=== PATIENT | female | born 1980 | race Caucasian/White ===

== ENCOUNTER → 2017-03-10 | Outpatient (CLI) | payer OTHER ==
[2016-04-05 03:50] VITALS: BP 161/100
--- NOTE | 2017-03-10 08:55 | RAD ---
Indication: Left knee pain. Time of exam 0845 hours. 3 views of the left knee were obtained. The alignment is normal. The joint spaces are well maintained. Articular surfaces are smooth. No fracture, dislocation or effusion is detected. Impression: No acute abnormality is detected.
== END | disposition home or self-care (01) ==
LOC: DXRADRC 08:29
PROVIDERS: ATTEND Family Medicine
DX: M25.562 Pain in left knee (principal); X58.XXXD Exposure to other specified factors, subsequent encounter
CPT/HCPCS: 73562

== ENCOUNTER → 2017-07-04 | Outpatient (CLI) | payer OTHER ==
[2016-04-05 03:50] VITALS: BP 161/100
[~2017-07-04] MED LIST: IOHEXOL 240 MG/ML 50ML VIAL. ONE; IOHEXOL 240 MG/ML 50ML VIAL. PO ONE; IOHEXOL 300 MG/ML 75 ML VIAL. IV ONE
--- NOTE | 2017-07-04 15:37 | RAD ---
INDICATION: Right lower quadrant pain COMPARISON: None. TECHNIQUE: Axial CT images were obtained through the abdomen and pelvis with intravenous contrast. Coronal reformations were processed. FINDINGS: Abdominal aorta is not grossly aneurysmal. No intrahepatic bile duct dilation. No peripancreatic edema. Spleen is unremarkable. 2 mm possible nonobstructive left renal stone. No left-sided hydronephrosis. No right-sided hydronephrosis. Urinary bladder is partially distended. Probable dominant follicle or small cyst right adnexa, 18 mm. Small free fluid in pelvis. No definite periappendiceal inflammation. Mild prominence of the wall of the terminal ileum. Appendix measures up to approximately 6-7 mm through portion of its course. Small fat-containing umbilical hernia. There is some evidence of degenerative changes of spine with disc protrusions. IMPRESSION: 1. No evidence of hydronephrosis. 2. A portion of the appendix measures near the upper limits of normal in size with the remainder of the appendix not dilated. There is no definite adjacent inflammatory changes to suggest acute appendicitis. 3. Mild prominence of the wall of the terminal ileum. Cannot exclude causes such as enteritis from infectious or inflammatory etiologies. PQRS Compliance Statement: One or more of the following individualized dose reduction techniques were utilized for this examination: 1. Automated exposure control 2. Adjustment of the mA and/or kV according to patient size 3. Use of iterative reconstruction technique
== END | disposition home or self-care (01) ==
LOC: CT 14:05
PROVIDERS: ATTEND Family Medicine
DX: K42.9 Umbilical hernia without obstruction or gangrene (principal); N32.89 Other specified disorders of bladder; M47.899 Other spondylosis, site unspecified
CPT/HCPCS: 74177; Q9966; Q9967

== ENCOUNTER → 2018-04-14 | Outpatient (CLI) | payer OTHER ==
[2016-04-05 03:50] VITALS: BP 161/100
[2018-04-14 12:03] LABS: BASO % 0 % (0-3); EOS % 1 % (0-3); GFR 62.7; HEMOGLOBIN 12.9 g/dL (12.0-15.5); LYMPH # 1.9 x10^3/uL (1.0-4.8); LYMPH % 31 % (24-48); MEAN CORPUSCULAR HEMOGLOBIN 30 pg (25-35); MEAN CORPUSCULAR HGB CONC 34 g/dL (31-37); MEAN CORPUSCULAR VOLUME 87 fL (79-100); MONO # 0.5 x10^3/uL (0.0-1.1); MONO % 8 % (0-9); NEUT # 3.7 x10^3uL (1.8-7.7); NEUT % 60 % (31-73); PLATELET COUNT 220 x10^3/uL (140-400); POTASSIUM 3.9 mmol/L (3.5-5.1); RED BLOOD COUNT 4.36 x10^6/uL (3.50-5.40); RED CELL DISTRIBUTION WIDTH 14.8 % (11.5-14.5); WHITE BLOOD COUNT 6.2 x10^3/uL (4.0-11.0)
[2018-04-14 14:59] LABS: FREE T4 1.15 ng/dL (0.76-1.46); THYROID STIM HORMONE (TSH) 1.815 uIU/mL (0.358-3.740)
== END | disposition home or self-care (01) ==
LOC: PMG 11:08
PROVIDERS: ATTEND Physician Assistant Medical
DX: T14.8XXA Other injury of unspecified body region, initial encounter (principal); X58.XXXA Exposure to other specified factors, initial encounter; Y93.89 Activity, other specified; Y92.89 Other specified places as the place of occurrence of the external cause; Y99.8 Other external cause status
CPT/HCPCS: 36415; 80048; 84439; 84443; 85025; 85610

== ENCOUNTER → 2019-03-10 | Outpatient (CLI) | payer OTHER ==
[2016-04-05 03:50] VITALS: BP 161/100
--- NOTE | 2019-03-10 09:12 | RAD ---
EXAM: LEFT SHOULDER 3 VIEWS. HISTORY: Left shoulder pain. COMPARISON: None. FINDINGS: No fractures are identified. Glenohumeral joint spaces and alignment are maintained. Acromioclavicular joint spaces and alignment are maintained. IMPRESSION: 1. No fracture or malalignment. Electronically signed by: Sue Newell MD (03/10/2019 9:09 AM) [facility]
== END | disposition home or self-care (01) ==
LOC: PMG 08:39
PROVIDERS: ATTEND Family Medicine
DX: S49.92XA Unspecified injury of left shoulder and upper arm, initial encounter (principal); X58.XXXA Exposure to other specified factors, initial encounter; Y93.89 Activity, other specified; Y92.89 Other specified places as the place of occurrence of the external cause; Y99.8 Other external cause status
CPT/HCPCS: 73030

== ENCOUNTER → 2019-03-21 | Outpatient (CLI) | payer OTHER ==
[2016-04-05 03:50] VITALS: BP 161/100
--- NOTE | 2019-03-21 17:21 | RAD ---
Examination: FOOT LEFT 3V History: Pain Comparison/Correlation: None Findings: Total 3 images of the left foot were obtained. Joint spaces are normal. No displaced fracture or bony destruction. Soft tissues are unremarkable. Impression: Normal three-view left foot x-ray exam. Electronically signed by: Enoc Montelongo MD (03/21/2019 5:18 PM) [facility]
== END | disposition home or self-care (01) ==
LOC: PMG 14:36
PROVIDERS: ATTEND Registered Nurse
DX: S99.922A Unspecified injury of left foot, initial encounter (principal); M79.672 Pain in left foot; W22.8XXA Striking against or struck by other objects, initial encounter; Y93.89 Activity, other specified; Y92.89 Other specified places as the place of occurrence of the external cause; Y99.8 Other external cause status
CPT/HCPCS: 73630

== ENCOUNTER → 2019-08-29 | Outpatient (CLI) | payer OTHER ==
[2016-04-05 03:50] VITALS: BP 161/100
--- NOTE | 2019-08-29 17:04 | RAD ---
Transabdominal and transvaginal sonography of the pelvis Clinical indications: Irregular vaginal bleeding. Pelvic pain. Transabdominal sonography: The uterus is anteverted in position. The longitudinal and AP and transverse dimensions of the uterus are 10.0 cm and 4.5 cm and 5.47 m respectively. Endometrial canal probably visualized. Therefore, transvaginal sonography will be performed. There is a cystic lesion of the left adnexa. Neither ovary is visualized transabdominally. Transvaginal sonography: The imaged canal measures 11 mm in thickness which is normal. No hyperemia of the endometrial canal is seen. No uterine mass or fibroid is evident. The left ovary is enlarged measuring 4.1 cm x 5.0 cm x 4.7 size and contains a 3.8 cm cyst. Cumulus oophorus is seen within the cyst consistent with a corpus luteum cyst. Color Doppler flow is seen within left ovary. The right ovary measures 2.2 cm and 1.6 cm and 3.4 cm in size and is normal. Color Doppler flow is seen within the right ovary. No adnexal mass or free fluid is evident. IMPRESSION: 3.8 cm corpus luteum cyst of the left ovary. Electronically signed by: Aaron Yepez MD (08/29/2019 5:01 PM) [facility]
== END | disposition home or self-care (01) ==
LOC: PMG 15:34
PROVIDERS: ATTEND Physician Assistant Medical
DX: N83.12 Corpus luteum cyst of left ovary (principal); N93.9 Abnormal uterine and vaginal bleeding, unspecified; F17.200 Nicotine dependence, unspecified, uncomplicated
CPT/HCPCS: 76830; 76856

== ENCOUNTER → 2019-08-29 | Outpatient (CLI) | payer OTHER ==
[2016-04-05 03:50] VITALS: BP 161/100
[2019-08-29 12:35] LABS: BASO % 1 % (0-3); EOS % 0 % (0-3); HEMATOCRIT 39.7 % (36.0-47.0); HEMOGLOBIN 13.1 g/dL (12.0-15.5); LYMPH # 1.8 x10^3/uL (1.0-4.8); LYMPH % 24 % (24-48); MEAN CORPUSCULAR HEMOGLOBIN 30 pg (25-35); MEAN CORPUSCULAR HGB CONC 33 g/dL (31-37); MEAN CORPUSCULAR VOLUME 90 fL (79-100); MONO # 0.4 x10^3/uL (0.0-1.1); MONO % 6 % (0-9); NEUT # 4.9 x10^3uL (1.8-7.7); NEUT % 69 % (31-73); PLATELET COUNT 242 x10^3/uL (140-400); RED BLOOD COUNT 4.39 x10^6/uL (3.50-5.40); WHITE BLOOD COUNT 7.2 x10^3/uL (4.0-11.0)
[2019-08-29 12:43] LABS: ALBUMIN 3.8 g/dL (3.4-5.0); ALBUMIN/GLOBULIN RATIO 1.1 (1.0-1.7); CALCIUM 8.3 mg/dL (8.5-10.1); GFR 62.1; POTASSIUM 3.9 mmol/L (3.5-5.1); TOTAL BILIRUBIN 0.4 mg/dL (0.2-1.0); TOTAL PROTEIN 7.4 g/dL (6.4-8.2)
[2019-08-30 03:06] LABS: DHEA SO4 52.9 ug/dL (57.3-279.2); ESTRADIOL LEVEL 112.5 pg/mL (.); FSH 5.7 mIU/mL (.); LUTEINIZING HORMONE 6.7 mIU/mL (.); PROGESTERONE 6.8 ng/mL (.)
[2019-08-30 19:34] LABS: THYROID STIM HORMONE (TSH) 1.72 uIU/mL (0.358-3.740)
[2019-09-01 02:06] LABS: ESTROGEN LEVEL 243 pg/mL (.)
[2019-09-01 11:08] LABS: TESTOSTERONE FREE 0.05 ng/dL (0.10-0.85); TESTOSTERONE TOTAL 3 ng/dL (8-48)
== END | disposition home or self-care (01) ==
LOC: PMG 11:10
PROVIDERS: ATTEND Physician Assistant Medical
DX: Z13.6 Encounter for screening for cardiovascular disorders (principal); N93.9 Abnormal uterine and vaginal bleeding, unspecified; F17.200 Nicotine dependence, unspecified, uncomplicated
CPT/HCPCS: 36415; 80053; 80061; 82627; 82670; 82672; 83001; 83002; 84144; 84402; 84403; 84443; 85025

== ENCOUNTER → 2019-11-13 | Outpatient (CLI) | payer OTHER ==
[2016-04-05 03:50] VITALS: BP 161/100
[2019-11-13 14:39] LABS: BASO % 1 % (0-3); EOS # 0.1 x10^3/uL (0.0-0.7); EOS % 1 % (0-3); HEMATOCRIT 37.5 % (36.0-47.0); HEMOGLOBIN 12.5 g/dL (12.0-15.5); LYMPH # 1.9 x10^3/uL (1.0-4.8); LYMPH % 30 % (24-48); MEAN CORPUSCULAR HEMOGLOBIN 29 pg (25-35); MEAN CORPUSCULAR HGB CONC 33 g/dL (31-37); MEAN CORPUSCULAR VOLUME 87 fL (79-100); MONO # 0.4 x10^3/uL (0.0-1.1); MONO % 7 % (0-9); NEUT # 3.8 x10^3uL (1.8-7.7); NEUT % 61 % (31-73); PLATELET COUNT 240 x10^3/uL (140-400); RED BLOOD COUNT 4.31 x10^6/uL (3.50-5.40); RED CELL DISTRIBUTION WIDTH 14.4 % (11.5-14.5); WHITE BLOOD COUNT 6.2 x10^3/uL (4.0-11.0)
[2019-11-13 14:43] LABS: CALCIUM 8.4 mg/dL (8.5-10.1); GFR 62.1; POTASSIUM 3.8 mmol/L (3.5-5.1)
[2019-11-13 14:50] LABS: ALBUMIN 3.8 g/dL (3.4-5.0); ALBUMIN/GLOBULIN RATIO 1.2 (1.0-1.7); TOTAL BILIRUBIN 0.3 mg/dL (0.2-1.0)
[2019-11-13 15:46] LABS: SEDIMENTATION RATE 12 (0-25)
== END | disposition home or self-care (01) ==
LOC: PMG 13:32
PROVIDERS: ATTEND Physician Assistant Medical
DX: M25.50 Pain in unspecified joint (principal)
CPT/HCPCS: 36415; 80053; 85025; 85651; 86617; 86618

== ENCOUNTER → 2020-09-29 | Outpatient (CLI) | payer OTHER ==
[2016-04-05 03:50] VITALS: BP 161/100
== END ==
LOC: LAB 11:07
PROVIDERS: ATTEND Internal Medicine Cardiovascular Disease
DX: U07.1 COVID-19 (principal); R51.9 Headache, unspecified
CPT/HCPCS: U0003

== ENCOUNTER 2020-10-18 16:56 | Emergency (ER) | payer BC, OTHER ==
[~2020-10-18] VITALS: Ht 162.6 cm; Wt 88.2 kg
[2020-10-18] MEDS ORDERED: IBUPROFEN 600 MG TABLET. PO ONE (17:00)
[2020-10-18] MEDS ORDERED: diphenhydrAMINE 50 MG/ML VIAL ONE (17:07)
[2020-10-18] MEDS ORDERED: diphenhydrAMINE 50 MG/ML VIAL IVP ONE (17:15)
[2020-10-18] MEDS ORDERED: LIDOCAINE 2% 20 ML VIAL. ONE (17:35)
--- NOTE | 2020-10-18 17:35 | RAD ---
Study: XR LT WRIST 3VIEWS Indication: Fall. Comparison: None. Findings: Dorsal more so than radial displacement of a comminuted distal radius fracture with intra-articular e xtension. Foreshortening is present as well. The carpal bones along with the hand are displaced along with the radial articular surface. Intercarpal alignment appears maintained. No discrete carpal bone or distal ulna fracture. Impression: Acute, comminuted distal radius fracture with dorsal/radial displacement, foreshortening and intra-ar ticular extension. No acute fracture seen elsewhere but recommend close attention on postreduction ra diographs. Electronically signed by: DIPIKA FOLEY MD (10/18/2020 5:33 PM) [id number]
[2020-10-18] MEDS ORDERED: LIDOCAINE 2% 20 ML VIAL. IJ ONE (17:45)
--- NOTE | 2020-10-18 17:47 | PHYS DOC ---
Past History Past Medical History: No Pertinent History Past Surgical History: No Surgical History Alcohol Use: Occasionally Drug Use: None General Adult EDM: Chief Complaint: WRIST PAIN HPI: HPI: Patient is a 40-year-old female who presents with left wrist pain. Patient states that she was walking out to her car she slipped on the ice. Patient has an obvious wrist deformity. Patient's rating pain a 10 out of 10. Patient denies taking anything at home for the pain. Review of Systems: Review of Systems: Constitutional: Denies fever or chills Eyes: Denies change in visual acuity HENT: Denies nasal congestion or sore throat Respiratory: Denies cough or shortness of breath Cardiovascular: Denies chest pain or edema GI: Denies abdominal pain, nausea, vomiting, bloody stools or diarrhea : Denies dysuria Musculoskeletal: Denies back pain or joint pain Integument: Denies rash Neurologic: Denies headache, focal weakness or sensory changes Endocrine: Denies polyuria or polydipsia Lymphatic: Denies swollen glands Psychiatric: Denies depression or anxiety Current Medications: Current Meds: Current Medications Medications (Trade) Dose Ordered Sig/Charmaine Start Time Stop Time Status Last Admin Dose Admin Diphenhydramine HCl (Benadryl) 50 mg STK-MED ONCE 10/18/20 17:07 10/18/20 17:08 DC Fentanyl Citrate (Fentanyl 2ml Vial) 100 mcg STK-MED ONCE 10/18/20 17:07 10/18/20 17:08 DC Ibuprofen (Motrin) 600 mg 1X ONCE 10/18/20 17:00 10/18/20 17:04 DC Allergies: Allergies: Allergies Coded Allergies Type Severity Reaction Last Updated Verified No Known Drug Allergies 04/05/16 No Physical Exam: PE: Constitutional: Well developed, well nourished, no acute distress, non-toxic appearance. [] HENT: Normocephalic, atraumatic, bilateral external ears normal, oropharynx moist, no oral exudates, nose normal. [] Eyes: PERRLA, EOMI, conjunctiva normal, no discharge. [] Neck: Normal range of motion, no tenderness, supple, no stridor. [] Cardiovascular:Heart rate regular rhythm, no murmur [] Lungs & Thorax: Bilateral breath sounds clear to auscultation [] Abdomen: Bowel sounds normal, soft, no tenderness, no masses, no pulsatile masses. [] Skin: Warm, dry, no erythema, no rash. [] Back: No tenderness, no CVA No tenderness, Extremities: no edema. no cyanosis, deformity of left wrist, pulses are intact Neurologic: Alert and oriented X 3, normal motor function, normal sensory function, no focal deficits noted. [] Psychologic: Affect normal, judgement normal, mood normal. [] Current Patient Data: Vital Signs: Vital Signs Date Time Temp Pulse Resp B/P (MAP) Pulse Ox O2 Delivery O2 Flow Rate FiO2 10/18/20 17:12 98 Room Air 10/18/20 17:00 97.7 118 16 174/109 (130) EKG: EKG: [] Radiology/Procedures: Radiology/Procedures: []Study: XR LT WRIST 3VIEWS Indication: Fall. Comparison: None. Findings: Dorsal more so than radial displacement of a comminuted distal radius fracture with intra-articular extension. Foreshortening is present as well. The carpal bones along with the hand are displaced along with the radial articular surface. Intercarpal alignment appears maintained. No discrete carpal bone or distal ulna fracture. Impression: Acute, comminuted distal radius fracture with dorsal/radial displacement, foreshortening and intra-articular extension. No acute fracture seen elsewhere but recommend close attention on postreduction radiographs. Electronically signed by: DIPIKA FOLEY MD (10/18/2020 5:33 PM) [id number] 6 left forearm 2 views left elbow 3 views. HISTORY: Pain after a fall left elbow 3 views were taken of the left elbow. There is not evidence of an acute fracture. The elbow is in a splint. No acute osseous abnormality is noted. Left forearm 2 views were taken of the left forearm. There is a displaced angulated fracture of the distal radius. IMPRESSION: 1. Displaced angulated fracture distal left radius. 2. No acute fracture noted at the left elbow. Electronically signed by: Jesús Cramer MD (10/18/2020 9:35 PM) [facility] Heart Score: Risk Factors: Risk Factors: DM, Current or recent (<one month) smoker, HTN, HLP, family history of CAD, obesity. Risk Scores: Score 0 - 3: 2.5% MACE over next 6 weeks - Discharge Home Score 4 - 6: 20.3% MACE over next 6 weeks - Admit for Clinical Observation Score 7 - 10: 72.7% MACE over next 6 weeks - Early Invasive Strategies Course & Med Decision Making: Course & Med Decision Making Pertinent Labs and Imaging studies reviewed. (See chart for details) []Patient is a 40-year-old female who presents with left wrist pain. Patient states that she was walking out to her car she slipped on the ice. Patient has an obvious wrist deformity. Patient's rating pain a 10 out of 10. Patient denies taking anything at home for the pain. Fentanyl given. Is neurovascular intact. Xray of left wrist shows a fracture. Diluadid and Benadryl given. "Pain medication always makes me itch". Patient still reporting pain. 1 of Dilaudid given. Fluids and Zofran given. Patient complaining of left forearm and left elbow pain. X-ray shows no acute fracture of left forearm or elbow. X-ray of left wrist shows acute, comminuted distal radius fracture with dorsal/radial displacement, foreshortening and intra-articular extension. No acute fracture seen elsewhere but recommend close attention on postreduction radiographs. Spoke with Dr. Garcia from Ortho who stated we needed to reduce and apply a sugar tong splint. Patient will follow up with Dr. Martinez's office on Tuesday to discuss surgery. Patient reporting 10/10 pain. Dilaudid given. Patient's pain has improved. Patient is hemodynamically stable and able to ambulate on her own. Patient agrees with follow-up plan and ready to be discharged to home. Conducted conscious sedation of the left wrist with Dr. Mon. See notes below Wu Disclaimer: Wu Disclaimer: This electronic medical record was generated, in whole or in part, using a voice recognition dictation system. Departure Departure: Impression: Primary Impression: Wrist fracture, closed Qualified Codes: S62.102A - Fracture of unspecified carpal bone, left wrist, initial encounter for closed fracture Disposition: 01 DC HOME SELF CARE/HOMELESS Condition: IMPROVED Referrals: KRISTY MASON (PCP) Patient Instructions: Wrist Fracture Additional Instructions: You were treated today for a fractured left wrist. We have placed a splint on your left wrist. You will need to call Dr. Ni any on Tuesday to set up an appointment for surgery. Have written your prescription for hydrocodone that you can take as needed for pain. Please take ibuprofen also for discomfort. Make sure that you are resting at home, using ice to the area, and elevating your arm. Please return to the emergency room for worsening symptoms or concerns. Dr. Ni's phone number. [phone] EMERGENCY DEPARTMENT GENERAL DISCHARGE INSTRUCTIONS Thank you for coming to [facility] (ED) today and trusting us with you care. We trust that you had a positivie experience in our Emergency Department. If you wish to speak to the department management, you may call the director at [phone]. YOUR FOLLOW UP INSTRUCTIONS ARE FOLLOWS: 1. Do you have a private Doctor? If you do not have a private doctor, please ask for a resource list of physicians or clinics that may be able to assist you with follow up care. 2. The Emergency Physician has interpreted your x-rays. The X-Ray specialist will also review them. If there is a change in the findings, you will be notified in 48 hours when at all possible. 3. A lab test or culture has been done, your results will be reviewed and you will be notified if you need a change in treatment. ADDITIONAL INSTRUCTIONS AND INFORMATION: 1. Your care today has been supervised by a physician who is specially trained in emergency care. Many problems require more than one evaluation for a complete diagnosis and treatment. We recommend that you schedule your follow up appointment as recommended to ensure complete treatment of you illness or injury. If you are unable to obtain follow up care and continue to have a problem, or if your condition worsens, we recommend that you return to the ED. 2. We are not able to safely determine your condition over the phone nor are we able to give sound medical advice over the phone. For these safety reasons, if you call for medical advice we will ask you to come to the ED for further evaluation. 3. If you have any questions regarding these discharge instructions please call the ED at [phone]. SAFETY INFORMATION: In the interest of safety, wellness, and injury prevention; we encourage you to wear your sealbelt, if you smoke; quite smoking, and we encourage family to use a protective helmet for bicycling and other sporting events that present an increased risk for head injury. IF YOUR SYMPTOMS WORSEN OR NEW SYMPTOMS DEVELOP, OR YOU HAVE CONCERNS ABOUT YOUR CONDITION; OR IF YOUR CONDITION WORSENS WHILE YOU ARE WAITING FOR YOUR FOLLOW UP APPOINTMENT; EITHER CONTACT YOUR PRIMARY CARE DOCTOR, THE PHYSICIAN WHOSE NAME AND NUMBER YOU WERE GIVEN, OR RETURN TO THE ED IMMEDIATELY. Scripts Oxycodone Hcl/Acetaminophen (PERCOCET 5-325 MG TABLET ) 1 Each Tablet 1 TAB PO PRN Q4HRS PRN for PAIN, #30 TAB Prov: ANIYA ROGERS APRN 10/18/20 ANIYA ROGERS APRN Oct 18, 2020 17:47
[2020-10-18] MEDS ORDERED: HYDROmorphone PF 1 MG/ML DISP.SYRIN IVP ONE ×3 (18:00→20:30)
[2020-10-18] MEDS ORDERED: ONDANSETRON PF 4 MG/2 ML VIAL. IVP ONE (18:45)
[2020-10-18] MEDS ORDERED: IV NORMAL SALINE 1,000ML 1,000 ML IV ONE (18:45)
[2020-10-18] MEDS ORDERED: PROPOFOL 10,000 MCG/ML (20ML) VIAL IV ONE ×2 (19:09→19:15)
--- NOTE | 2020-10-18 20:23 | RAD ---
Exam: Left wrist 2 views INDICATION: Post reduction TECHNIQUE: Frontal and lateral views of the left wrist were obtained. Comparisons: None FINDINGS: Redemonstration of a impacted comminuted fracture of the distal left radius which is overall similar alignment when compared to prior exam. Evaluation mildly limited secondary to overlying cast material. IMPRESSION: Redemonstration of severely comminuted intra-articular fracture of the distal left radius. Electronically signed by: Raffaele Hinkle MD (10/18/2020 8:21 PM) [facility]
[2020-10-18] MEDS ORDERED: OXYC1TAB15 PO (20:24)
[2020-10-18 20:33] VITALS: BP 155/93
--- NOTE | 2020-10-18 21:38 | RAD ---
6 left forearm 2 views left elbow 3 views. HISTORY: Pain after a fall left elbow 3 views were taken of the left elbow. There is not evidence of an acute fracture. The elbow is in a s plint. No acute osseous abnormality is noted. Left forearm 2 views were taken of the left forearm. There is a displaced angulated fracture of the distal radius. IMPRESSION: 1. Displaced angulated fracture distal left radius. 2. No acute fracture noted at the left elbow. Electronically signed by: Jesús Cramer MD (10/18/2020 9:35 PM) [facility]
== END 2020-10-18 21:41 | disposition home or self-care (01) ==
LOC: ER 16:56
DX: S52.502A Unspecified fracture of the lower end of left radius, initial encounter for closed fracture (principal); S62.102A Fracture of unspecified carpal bone, left wrist, initial encounter for closed fracture; W00.0XXA Fall on same level due to ice and snow, initial encounter; Y93.01 Activity, walking, marching and hiking; Y92.89 Other specified places as the place of occurrence of the external cause; Y99.8 Other external cause status
CPT/HCPCS: 25605; 73080; 73090; 73100; 73110; 96361; 96374; 96375; 99152; 99153; 99285; J1170; J1200; J2001; J2405; J2704; J3010; J7030

== ENCOUNTER → 2020-11-03 | Outpatient (CLI) | payer OTHER ==
[2020-10-18 20:33] VITALS: BP 155/93
[~2020-11-03] MED LIST changes: -IOHEXOL 240 MG/ML 50ML VIAL. ONE; -IOHEXOL 240 MG/ML 50ML VIAL. PO ONE; -IOHEXOL 300 MG/ML 75 ML VIAL. IV ONE; +OXYC1TAB15 PO
--- NOTE | 2020-11-03 17:43 | RAD ---
Left wrist 3 views INDICATION: Left wrist pain. Posterior left hand swelling. COMPARISON: 10/18/2020 FINDINGS: Interval volar plate and screw construct fixation of the comminuted depressed fracture of the distal left radial metaphysis with mild residual deformity. The AP view suggests mild incongruence of the ar ticular surface. Soft tissues show mild diffuse swelling of the wrist. IMPRESSION: ORIF of the impacted comminuted distal left radial metaphyseal fracture with intra-articular extensio n showing improvement in alignment with mild incongruence of the articular surface. This can be evalu ated in greater detail by CT if clinically warranted. Electronically signed by: Elliot Allison MD (11/03/2020 5:41 PM) [id number]
== END ==
LOC: DXRAD 12:07
PROVIDERS: ATTEND Physician Assistant
DX: S52.572A Other intraarticular fracture of lower end of left radius, initial encounter for closed fracture (principal); X58.XXXA Exposure to other specified factors, initial encounter; Y93.89 Activity, other specified; Y92.89 Other specified places as the place of occurrence of the external cause; Y99.8 Other external cause status
CPT/HCPCS: 73110

== ENCOUNTER → 2020-11-07 | Outpatient (CLI) | payer OTHER ==
[2020-10-18 20:33] VITALS: BP 155/93
--- NOTE | 2020-11-07 12:50 | RAD ---
Three-view left hand radiographs 11/07/2020 CLINICAL HISTORY: Injury to the left third and fourth fingers. PA, lateral and oblique digital radiographs of the left hand were obtained. Comparison study is dated 11/03/2020. The patient is post ORIF of a comminuted fracture of the distal left radial metaphysis us ing a side plate and multiple bone screws. The alignment of the fracture fragments is unchanged. No a cute fracture or dislocation of the left hand is seen. IMPRESSION: No acute fracture or dislocation of the left hand is seen. Electronically signed by: Tadeo Lorenzana MD (11/07/2020 12:48 PM) [id number]
== END ==
LOC: PMG 12:15
PROVIDERS: ATTEND Physician Assistant Medical
DX: M79.642 Pain in left hand (principal)
CPT/HCPCS: 73130

== ENCOUNTER → 2021-05-29 | Outpatient (CLI) | payer OTHER ==
--- NOTE | 2021-05-29 08:40 | RAD ---
CT CERVICAL SPINE WO History: Cervicalgia radiating down right shoulder. Comparison: None. Technique: Noncontrast CT of the cervical spine. Findings: There are 7 nonrib-bearing cervical vertebral segments. There is no evidence for fracture in the cervical spine. Alignment is normal. Minimal disc space narrowing C5-C6 and C6-C7. No significant spinal canal or neural foraminal stenosi s. No destructive osseous lesions are seen. Right mandibular molar large dental carry with periapical lucency. Limited evaluation of the soft tissues of the neck and of the upper chest is unremarkable. Impression: 1. Minimal degenerative changes of the cervical spine without significant spinal canal or neural for aminal stenosis. 2. Right mandibular molar cavity with periapical lucencies concerning for dental abscess. ------- Exposure: One or more of the following individualized dose reduction techniques were utilized for thi s examination: 1. Automated exposure control 2. Adjustment of the mA and/or kV according to patient size 3. Use of iterative reconstruction technique. Electronically signed by: Jai Cortes MD (05/29/2021 8:38 AM) [id number]
== END ==
LOC: RAD 08:00
PROVIDERS: ATTEND Physician Assistant Medical
DX: M47.812 Spondylosis without myelopathy or radiculopathy, cervical region (principal); M48.02 Spinal stenosis, cervical region
CPT/HCPCS: 72125

== ENCOUNTER → 2021-10-07 | Outpatient (CLI) | payer OTHER ==
--- NOTE | 2021-10-07 12:55 | RAD ---
EXAM: Left wrist, 3 views. HISTORY: Fracture follow-up. Pain. COMPARISON: 11/03/2020 FINDINGS: 3 views of the left wrist are obtained. There is internal fixation of a healed distal radia l metaphyseal fracture with a plate and multiple screws. There is ventral inclination of the distal r adial articular surface. There is no evidence of instrumentation loosening. There is no new fracture. IMPRESSION: Internal fixation of a healed distal radial metaphyseal fracture. Electronically signed by: Emerald Palma MD (10/07/2021 12:53 PM) [id number]
== END ==
LOC: RAD 12:17
PROVIDERS: ATTEND Orthopaedic Surgery Sports Medicine
DX: M25.532 Pain in left wrist (principal)
CPT/HCPCS: 73110

== ENCOUNTER → 2022-01-19 | Outpatient (CLI) | payer OTHER ==
[2022-01-19 09:24] LABS: BASO % 1 % (0-3); EOS # 0.1 x10^3/uL (0.0-0.7); EOS % 1 % (0-3); HEMATOCRIT 41.8 % (36.0-47.0); HEMOGLOBIN 13.8 g/dL (12.0-15.5); LYMPH # 1.7 x10^3/uL (1.0-4.8); LYMPH % 35 % (24-48); MEAN CORPUSCULAR HEMOGLOBIN 31 pg (25-35); MEAN CORPUSCULAR HGB CONC 33 g/dL (31-37); MEAN CORPUSCULAR VOLUME 94 fL (79-100); MONO # 0.4 x10^3/uL (0.0-1.1); MONO % 8 % (0-9); NEUT # 2.7 x10^3uL (1.8-7.7); NEUT % 56 % (31-73); PLATELET COUNT 210 x10^3/uL (140-400); RED BLOOD COUNT 4.45 x10^6/uL (3.50-5.40); RED CELL DISTRIBUTION WIDTH 14.4 % (11.5-14.5); WHITE BLOOD COUNT 4.8 x10^3/uL (4.0-11.0)
[2022-01-19 09:35] LABS: ALBUMIN 3.9 g/dL (3.4-5.0); ALBUMIN/GLOBULIN RATIO 1.3 (1.0-1.7); CALCIUM 8.8 mg/dL (8.5-10.1); CREATININE 0.9 mg/dL (0.6-1.0); GFR 69.3; POTASSIUM 4.4 mmol/L (3.5-5.1); TOTAL BILIRUBIN 0.6 mg/dL (0.2-1.0)
[2022-01-19 21:53] LABS: CHOLESTEROL/HDL RATIO 2.7
[2022-01-19 21:54] LABS: FREE T4 1.12 ng/dL (0.76-1.46); THYROID STIM HORMONE (TSH) 1.614 uIU/mL (0.358-3.740)
== END ==
LOC: LAB 08:12
PROVIDERS: ATTEND Physician Assistant Medical
DX: Z00.00 Encounter for general adult medical examination without abnormal findings (principal)
CPT/HCPCS: 36415; 80053; 80061; 84439; 84443; 85025